=== PATIENT | male | born 1990 | race Two or more races ===

== ENCOUNTER 2016-09-07 17:12 | Emergency (ER) | payer MEDICAID ==
[~2016-09-07] VITALS: Ht 177.8 cm; Wt 88.5 kg
[2016-09-07 18:21] LABS: Urine RBC None Seen /hpf (0 - 3)
[2016-09-07 18:36] LABS: Urine Bilirubin Negative (Negative); Urine Blood Negative /uL (Negative); Urine Color Yellow (Yellow); Urine Glucose Normal (Normal); Urine Ketone Negative (Negative); Urine Nitrite Negative (Negative); Urine Squamous Epithelial Cell FEW /hpf (<5); Urine Urobilinogen Normal (Negative); Urine pH 5.5 (5.0-8.0)
[2016-09-07 18:42] LABS: Basophils # (auto) 0 uL; Basophils % (auto) 0.4 % (0.0-2.0); Eosinophils # (auto) 0.2 uL; Eosinophils % (auto) 2.6 % (0.0-7.0); Hematocrit 43.5 % (41.0-53.0); Hemoglobin 13.8 g/dL (13.5-17.5); Lymphocytes # (auto) 3.8 uL; Lymphocytes % (auto) 46.3 % (10.0-50.0); Mean Corpuscular Hemoglobin 27.8 pg (28.0-32.0); Mean Corpuscular Hgb Conc. 31.8 g/dL (32.0-36.0); Mean Corpuscular Volume 87.4 fL (80.0-100.0); Mean Platelet Volume 8.1 fL (7.4-10.4); Monocytes # (auto) 0.5 uL; Monocytes % (auto) 6.2 % (0.0-12.0); Neutrophils # (auto) 3.6 uL; Neutrophils % (auto) 44.5 % (37.0-80.0); Platelet Count (auto) 345 10^3/uL (140-450); Red Cell Distribution Width 13.8 % (11.6-16.0); White Blood Cell 8.1 10^3/uL (4.4-10.8)
[2016-09-07 19:04] LABS: Albumin 3.9 g/dL (3.4-5.0); Calcium 8.7 mg/dL (8.5-10.1); Potassium 3.8 mmol/L (3.5-5.1)
[2016-09-07 19:06] LABS: BUN/Creatinine Ratio 12.1
[2016-09-07 19:09] LABS: Bilirubin, Total 0.4 mg/dL (0.2-1.0); Total Protein 7.3 g/dL (6.4-8.2)
[2016-09-08 07:00] VITALS: BP 125/83
== END 2016-09-08 07:01 | disposition home or self-care (01) ==
LOC: ER 17:21
DX: K52.9 Noninfective gastroenteritis and colitis, unspecified (principal); K21.9 Gastro-esophageal reflux disease without esophagitis
CPT/HCPCS: 36415; 74176; 80053; 81001; 82150; 83690; 85025

== ENCOUNTER 2018-06-04 18:54 | Emergency (ER) | payer MEDICAID ==
[~2018-06-04] VITALS: Ht 177.8 cm; Wt 89.4 kg
[2018-06-04 19:46] LABS: Urine Bacteria NONE SEEN /hpf (None Seen); Urine Blood Negative /uL (Negative); Urine Mucus FEW (None Seen); Urine Specific Gravity 1.023 (1.001-1.035); Urine WBC <1 /hpf (0 - 3)
[2018-06-04 19:56] LABS: Basophils # (auto) 0 uL; Basophils % (auto) 0.3 % (0.0-2.0); Eosinophils # (auto) 0.1 uL; Eosinophils % (auto) 1.2 % (0.0-7.0); Hematocrit 46.2 % (41.0-53.0); Hemoglobin 15.9 g/dL (13.5-17.5); Lymphocytes # (auto) 4.6 uL; Lymphocytes % (auto) 54.3 % (10.0-50.0); Mean Corpuscular Hemoglobin 29.3 pg (28.0-32.0); Mean Corpuscular Hgb Conc. 34.4 g/dL (32.0-36.0); Monocytes # (auto) 0.4 uL; Monocytes % (auto) 4.9 % (0.0-12.0); Neutrophils # (auto) 3.4 uL; Neutrophils % (auto) 39.3 % (37.0-80.0); Nucleated Red Blood Cells % 0.1 %; Platelet Count (auto) 330 10^3/uL (140-450); Red Blood Cells 5.43 10^6/uL (4.5-5.90); Red Cell Distribution Width 13.5 % (11.8-14.3); White Blood Cell 8.5 10^3/uL (4.4-10.8)
[2018-06-04 20:11] LABS: Albumin 4.3 g/dL (3.4-5.0); BUN/Creatinine Ratio 9.9; Calcium 8.9 mg/dL (8.5-10.1); Potassium 3.6 mmol/L (3.5-5.1)
[2018-06-04 20:13] LABS: Bilirubin, Total 0.7 mg/dL (0.2-1.0); Total Protein 8.4 g/dL (6.4-8.2)
[2018-06-04 22:00] VITALS: BP 136/82
== END 2018-06-04 22:59 | disposition home or self-care (01) ==
LOC: ER 18:54
DX: R10.31 Right lower quadrant pain (principal); R51 Headache; R11.0 Nausea; K21.9 Gastro-esophageal reflux disease without esophagitis
CPT/HCPCS: 36415; 74176; 80053; 81001; 85025

== ENCOUNTER 2018-08-24 14:43 | Emergency (ER) | payer MEDICAID ==
[~2018-08-24] VITALS: Ht 177.8 cm; Wt 90.7 kg
[2018-08-24 14:49] VITALS: BP 136/86
[2018-08-24] MEDS ORDERED: KETOROLAC TROMETH 60MG/2ML VIAL IM ONE (16:15)
== END 2018-08-24 17:10 | disposition home or self-care (01) ==
LOC: ER 14:50
DX: S00.93XA Contusion of unspecified part of head, initial encounter (principal); K21.9 Gastro-esophageal reflux disease without esophagitis; V00.311A Fall from snowboard, initial encounter; Y93.23 Activity, snow (alpine) (downhill) skiing, snowboarding, sledding, tobogganing and snow tubing; Y99.8 Other external cause status; Y92.89 Other specified places as the place of occurrence of the external cause
CPT/HCPCS: 70450; 72125; 96372; 99284; J1885

== ENCOUNTER 2019-02-01 16:59 | Emergency (ER) | payer MEDICAID ==
[~2019-02-01] VITALS: Ht 177.8 cm; Wt 82.6 kg
[2019-02-01 18:27] VITALS: BP 149/68
[2019-02-01] MEDS ORDERED: KETOROLAC TROMETH 60MG/2ML VIAL IM ONE (20:30)
== END 2019-02-01 20:41 | disposition home or self-care (01) ==
LOC: ER 16:59
DX: R51 Headache (principal)
CPT/HCPCS: 70450; 96372; 99284; J1885

== ENCOUNTER 2019-03-26 17:08 | Emergency (ER) | payer MEDICAID ==
[~2019-03-26] VITALS: Ht 177.8 cm; Wt 81.6 kg
[2019-03-26 17:42] VITALS: BP 114/51
[2019-03-26] MEDS ORDERED: KETOROLAC TROMETH 60MG/2ML VIAL IM ONE (17:45)
== END 2019-03-26 18:15 | disposition home or self-care (01) ==
LOC: ER 17:10
DX: M54.42 Lumbago with sciatica, left side (principal); F17.210 Nicotine dependence, cigarettes, uncomplicated; X58.XXXA Exposure to other specified factors, initial encounter; Y93.01 Activity, walking, marching and hiking; Y92.89 Other specified places as the place of occurrence of the external cause; Y99.8 Other external cause status
CPT/HCPCS: 96372; 99283; J1885

== ENCOUNTER 2025-02-25 07:06 | Emergency (ER) | payer MEDICAID ==
[~2025-02-25] VITALS: Ht 177.8 cm; Wt 83.7 kg
[2025-02-25 07:26] VITALS: BP 144/82; PULSE 79; RESP 16; TEMP 98.3; O2SAT 99
--- NOTE | 2025-02-25 07:35 | ED.PDOC ---
Musculoskeletal HPI Comments A 34 YEAR OLD MALE PRESENTS TO THE ED WITH COMPLAINT OF RIGHT SHOULDER PAIN. PATIENT STATES HE HAS A HISTORY OF A SPIRAL RIGHT HUMERUS FRACTURE 2 MONTHS AGO AND ACCIDENTALLY FELL OFF OF THE COUCH YESTERDAY WHILE HE WAS TAKING A NAP AND LANDED ON HIS RIGHT ARM. PATIENT REPORTS HE IS NOW EXPERIENCING RIGHT SHOULDER AND UPPER ARM PAIN AND WOULD LIKE TO MAKE SURE HIS HUMERUS IS NOT BROKEN AGAIN. PATIENT DENIES HEAD INJURY, NECK INJURY LOC, FEVER, CHILLS, SHORTNESS OF BREATH, CHEST PAIN, ABDOMINAL PAIN, NAUSEA, VOMITING, HEADACHE, OR OTHER COMPLAINTS. NO OTHER SYMPTOMS OR MODIFYING FACTORS AT THIS TIME. PATIENT IS ALERT, ORIENTED X 4, AND HAS STEADY GAIT. Chief Complaint: Upper Extremity Time Seen by MD: 07:14 Primary Care Provider: JOHNATHAN Flanagan Notes: Nurses Notes, Medications, Allergies Allergies: Coded Allergies: NO KNOWN ALLERGIES (Unverified , 04/23/13) Information Source: Patient Location: Right Extremity Location: Arm, Shoulder Timing: Days Prehospital treatment: None Severity: Moderate Able to Move Extremity: Yes Bear Weight: Fully Pain: Moderate Mechanism: Blunt Trauma Circumstances: Fall Onset of Symptoms: After Trauma Symptoms: Pain DVT Risk Factors: NONE Last Tetanus: Unknown Associated signs and symptoms: Shoulder pain, Arm pain Past Medical History PAST MEDICAL HISTORY: Denies Surgical History: Denies all surgeries Family History Family History: Reviewed,noncontributory to illness Social History Smoker: Cigarettes, Less Than 1 Pack/Day Alcohol: Occasionally Drugs: Denies Drug Use Lives In: Home Constitutional: denies: chills, diaphoresis, fatigue, fever, malaise, sweats, weakness, others EENTM: denies: blurred vision, double vision, ear bleeding, ear discharge, ear drainage, ear pain, ear ringing, eye pain, eye redness, hearing loss, mouth pain, mouth swelling, nasal discharge, nose bleeding, nose congestion, nose pain, photophobia, tearing, throat pain, throat swelling, voice changes, others Respiratory: denies: cough, hemoptysis, orthopnea, SOB at rest, shortness of breath, SOB with excertion, stridor, wheezing, others Cardiovascular: denies: chest pain, dizzy spells, diaphoresis, Dyspnea on exertion, edema, irregular heart beat, left arm pain, lightheadedness, palpitations, PND, syncope, others Gastrointestinal: denies: abdomen distended, abdominal pain, blood streaked bowels, constipated, diarrhea, dysphagia, difficulty swallowing, hematemesis, melena, nausea, poor appetite, poor fluid intake, rectal bleeding, rectal pain, vomiting, others Genitourinary: denies: burning, dysuria, flank pain, frequency, hematuria, incontinence, penile discharge, penile sore, pain, testicle pain, testicle swelling, urgency, others Musculoskeletal: reports: joint pain, others (RIGHT SHOULDER AND UPPER ARM PAIN); denies: back pain, gout, joint swelling, muscle pain, muscle stiffness, neck pain Integumetry: denies: bruises, change in color, change in hair/nails, dryness, laceration, lesions, lumps, rash, wounds, others Allergic/Immunocompromised: denies: Difficulty Healing, Frequent Infections, Hives, Itching, others Hematologic/Lymphatic: denies: anemia, blood clots, easy bleeding, easy bruising, swollen glands, others Endocrine: denies: excessive hunger, excessive sweating, excessive thirst, excessive urination, flushing, intolerance to cold, intolerance to heat, unexplained weight gain, unexplained weight loss, others Psychiatric: denies: anxiety, bipolar disorder, depression, hopeless, panic disorder, schizophrenia, sleepless, suicidal, others All Other Systems: Reviewed and Negative Physical Exam General Appearance: No Apparent Distress, Normal HEENT: Normal ENT Inspection, PERRL/EOMI, Pharynx Normal, TMs Normal Neck: Full Range of Motion, Non-Tender, Normal, Normal Inspection Respiratory: Chest Non-Tender, Lungs Clear, No Accessory Muscle Use, No Respiratory Distress, Normal Breath Sounds Cardiovascular: No Edema, No JVD, No Murmur, No Gallop, Normal Peripheral Pulses, Regular Rate/Rhythm Breast Exam: Deferred Gastrointestinal: No Organomegaly, Non Tender, No Pulsatile Mass, Normal Bowel Sounds, Soft Genitalia: Deferred Pelvic: Deferred Rectal: Deferred Extremities: Decreased range of motion, No calf tenderness, Normal capillary refill, No pedal edema, Tender (RIGHT ARM WITH HARD SPLINT ON RIGHT UPPER EXTREMITY. NO DEFORMITY. ) Musculoskeletal : Apperance: Normal Neurologic: Alert, programming engineer II-XII nml as Tested, No Motor Deficits, Normal Affect, Normal Mood, No Sensory Deficits Cerebellar Function: Normal Reflexes: Normal Skin: Dry, Normal Color, Warm Peripheral Pulses: 2+ carotid (R), 2+ carotid (L), 2+ Radial (R), 2+ Radial (L) Lymphatic: No Adenopathy Was a procedure done? Was a procedure done?: No Differential Diagnosis EXT Differential Diagnosis: Fracture, Sprain, Dislocation, Contusion, Strain, Bursitis X-Ray, Labs, Meds, VS Vital Signs Date Time Temp Pulse Resp B/P (MAP) Pulse Ox O2 Delivery O2 Flow Rate FiO2 02/25/25 07:26 98.3 79 16 144/82 (102) 99 98.3 PATIENT: CHANO NICOLEACCT: [id number]: [id number] : 1990 LOC: ER ROOM / BED: / AGE / SEX: 34 / M ADM STATUS: REG ER SERVICE 075 ORDERING PHYSICIAN: SOFIA MENDOZA PROCEDURE(s): RHUM - R HUMERUS XRAY REASON: HX OF RIGHT HUMER FX ORDER NUMBER(s): [id number], ACCESSION NUMBER(s): [id number] CLINICAL INDICATION: HX OF RIGHT HUMER FX TECHNIQUE: XY R HUMERUS XRAY Comparison: None FINDINGS/IMPRESSION: : Chronic appearing healing angulated fracture of the humerus. ATED BY: LOBO REVELES MD DICTATED DATE/TIME: 02/25/25835 SIGNED BY: LOBO REVELES MD SIGNED DATE/TIME: 02/25/25835 CC: X-Ray, Labs, Meds, VS Comment EXTERNAL MEDICAL RECORDS REVIEWED: [NONE] INDEPENDENT HISTORIANS: [NONE] SOCIAL DETERMINANTS OF HEALTH: [NONE] LABS ORDERED: NONE REVIEWED AND INTERPRETED RESULTS: NONE IMAGING ORDERED: XR SHOULDER RT XR HUMERUS RT: [INTERPRETED BY ME. OLD SPIRAL FRACTURE OF HUMERUS SEEN. NO ACUTE/NEW FRACTURE SEEN. NO DISLOCATION, PENDING RADIOLOGY REVIEW.] TREATMENTS ORDERED: NONE PROCEDURES PERFORMED: NONE CRITICAL CARE TIME: NONE I HAVE DISCUSSED THE PATIENT WITH THE ATTENDING PHYSICIAN DR. CANO AND HE AGREES WITH THE PATIENT'S PLAN OF CARE AND DISPOSITION. BASED ON HISTORY OF PRESENT ILLNESS, AND PHYSICAL EXAM, PATIENT WILL BE DISCHARGED HOME. SHARED DECISION MAKING: PATIENT INSTRUCTED TO FOLLOW UP WITH PRIMARY CARE PROVIDER IN 1-2 DAYS FOR RE-EVALUATION OF SYMPTOMS. PATIENT VERBALIZES UNDERSTANDING TO RETURN TO ED FOR NEW OR WORSENING SYMPTOMS OR IF FOLLOW UP WITH PCP CANNOT BE OBTAINED. PATIENT FEELS COMFORTABLE GOING HOME AT THIS TIME. ALL QUESTIONS ADDRESSED AT TIME OF DISCHARGE. Images Reviewed?: Images reviewed and evaluated by me Time of 1ST Reevaluation: 08:35 Reevaluation 1ST: Improved Patient Education/Counseling: Diagnosis, Treatment, Need For Follow Up Family Education/Counseling: Diagnosis, Treatment, Need For Follow Up Medical Screening: No EMC Exist At This Time Departure 1 Departure Time of Disposition: 08:38 Impression: Primary Impression: Closed right humeral fracture Qualified Codes: S42.331D - Displaced oblique fracture of shaft of humerus, right arm, subsequent encounter for fracture with routine healing Disposition: 01 HOME / SELF CARE / HOMELESS Condition: Stable Additional Instructions: FOLLOW-UP WITH PCP, ORTHOPEDIC, OR [facility] IN 1 TO 2 DAYS. RETURN TO ED FOR ANY NEW OR WORSENING SYMPTOMS. Discharged With: Self Critical Care Note Critical Care Time?: No Stability Stability form required: No I personally scribed for SOFIA MENDOZA ([email or web address]) on 02/25/25 at 07:35. Electronically submitted by Darío Luong ([email or web address]). SOFIA MENDOZA Feb 25, 2025 07:35
--- NOTE | 2025-02-25 08:02 | DVH ---
EXAM: XY R SHOULDER 2+ VIEW XRAY CLINICAL INDICATION: FALL YESTERDAY, HX OF RIGHT HUMER SHAFT FX X 2MONTHS AGO TECHNIQUE: XY R SHOULDER 2+ VIEW XRAY Comparison: None FINDINGS/IMPRESSION: There is no evidence of acute fracture or dislocation. The visualized joint space is well maintained. The alignment is anatomical. There is no radiopaque foreign body.
--- NOTE | 2025-02-25 08:39 | DVH ---
CLINICAL INDICATION: HX OF RIGHT HUMER FX TECHNIQUE: XY R HUMERUS XRAY Comparison: None FINDINGS/IMPRESSION: : Chronic appearing healing angulated fracture of the humerus.
== END 2025-02-25 08:30 | disposition home or self-care (01) ==
LOC: ER 07:15
DX: S42.391A Other fracture of shaft of right humerus, initial encounter for closed fracture (principal); F17.210 Nicotine dependence, cigarettes, uncomplicated; F10.90 Alcohol use, unspecified, uncomplicated; Y90.9 Presence of alcohol in blood, level not specified
CPT/HCPCS: 51702; 73030; 73060